=== PATIENT | male | born 1950 | race Caucasian/White ===

== ENCOUNTER 2018-02-24 17:36 | Emergency (ER) | payer OTHER ==
[2018-02-24 18:13] LABS: BASOPHILS # (AUTO) 0.1 10^3/uL (0.0-0.1); BASOPHILS % (AUTO) 0.6 %; EOSINOPHILS # (AUTO) 0.1 10^3/uL (0.0-0.7); EOSINOPHILS % (AUTO) 0.7 %; HGB - HEMOGLOBIN 15.5 g/dL (14.0-18.0); LYMPHOCYTES # (AUTO) 3.7 10^3/uL (1.5-3.5); LYMPHOCYTES % (AUTO) 34.4 %; MEAN CORPUSCULAR HEMOGLOBIN 28.9 pg (27.0-31.0); MEAN PLATELET VOLUME 7.9 fL (7.4-11.4); NEUTROPHILS # (AUTO) 5.9 10^3/uL (1.5-6.6); NEUTROPHILS % (AUTO) 55.3 %; PLT - PLATELET COUNT 183 10^3/uL (130-450); RED BLOOD COUNT 5.37 10^6/uL (4.70-6.10); RED CELL DISTRIBUTION WIDTH 13.5 % (12.0-15.0); WHITE BLOOD COUNT 10.7 x10^3/uL (4.8-10.8)
--- NOTE | 2018-02-24 18:13 | XRAY Report ---
Procedure Date: 02/24/2018 Accession Number: [id number] / [id number] Procedure: XR - Chest 2 View X-Ray CPT Code: 92285 FULL RESULT: EXAM: CHEST RADIOGRAPHY EXAM DATE: 02/24/2018 05:55 PM. CLINICAL HISTORY: Chest pain. COMPARISON: None. TECHNIQUE: 2 views. FINDINGS: Lungs/Pleura: No focal opacities evident. No pleural effusion. No pneumothorax. Normal volumes. Mediastinum: Normal heart size. There is thoracic aortic tortuosity. Other: None. IMPRESSION: No acute intrathoracic plain film abnormality. RADIA
--- NOTE | 2018-02-24 18:21 | ED Physician Documentation ---
PD HPI CHEST PAIN - Stated complaint Stated Complaint: CP - Chief complaint Chief Complaint: Cardiac - History obtained from History obtained from: Patient - History of Present Illness Timing - onset: Yesterday (he says he had onset of chest pain abruptly at rest yesterday morning, which lasted 2-3 hours then decreased but did not go away. Has continued pain into today. Tried to make appt with PMD, but office referred him to the ER. He drove himself here.) Timing - onset during: Rest Timing - duration: Days (about 36 hours of pain, with the initial severe pain lasting the first 2-3 hours) Timing - details: Abrupt onset, Still present Quality: Tightness, Aching, Pain Location: Substernal, Left chest Radiation: Neck Improved by: No: Rest Worsened by: Exertion (walking around). No: Inspiration, Movement, Palpation Associated symptoms: Diaphoresis, Nausea, Feeling faint / dizzy. No: Vomiting, Palpitations, Cough Similar symptoms before: Has not had sx before Recently seen: Not recently seen Review of Systems Ten Systems: 10 systems reviewed and negative Constitutional: denies: Fever, Chills, Myalgias Nose: denies: Rhinorrhea / runny nose Throat: denies: Sore throat Cardiac: reports: Chest pain / pressure. denies: Palpitations, Pedal edema, Calf pain Respiratory: reports: Dyspnea. denies: Cough, Wheezing GI: reports: Nausea. denies: Abdominal Pain, Vomiting, Diarrhea, Bloody / black stool : denies: Dysuria, Frequency Skin: denies: Rash, Lesions Musculoskeletal: denies: Extremity swelling Neurologic: reports: Generalized weakness. denies: Focal weakness, Numbness, Near syncope, Altered mental status, Headache Psychiatric: denies: Anxiety Endocrine: reports: Weight loss (recent due to eating improved diet) Immunocompromised: denies: Immunocompromised PD PAST MEDICAL HISTORY - Past Medical History Cardiovascular: Hypertension Respiratory: None Neuro: TIA Endocrine/Autoimmune: None GI: None - Present Medications Home Medications: Ambulatory Orders Medication Instructions Recorded Confirmed Aspirin 81 mg PO 02/24/18 metFORMIN [Glucophage] 02/24/18 - Allergies Allergies/Adverse Reactions: Allergies Allergy/AdvReac Type Severity Reaction Status Date / Time No Known Drug Allergies Allergy Verified 02/24/18 17:45 - Living Situation Living Situation: reports: Alone Living Arrangement: reports: At home - Social History Does the pt smoke?: No Does the pt drink ETOH?: No Does the pt have substance abuse?: No - Family History Family history: reports: CAD PD ED PE NORMAL - Vitals Vital signs reviewed: Yes - General General: Alert and oriented X 3, No acute distress, Well developed/nourished - HEENT HEENT: Ears normal, Pharynx benign - Neck Neck: Supple, no meningeal sign, No adenopathy, No JVD, No bruit - Cardiac Cardiac: RRR, No murmur - Respiratory Respiratory: Clear bilaterally - Abdomen Abdomen: Normal bowel sounds, Soft, Non tender, Non distended - Male Male : Deferred - Rectal Rectal: Deferred - Back Back: No CVA TTP - Derm Derm: Normal color, Warm and dry, No rash - Extremities Extremities: No deformity, No tenderness to palpate, Normal ROM s pain, No edema , No calf tenderness / cord - Neuro Neuro: Alert and oriented X 3, No motor deficit, Normal speech Eye Opening: Spontaneous Motor: Obeys Commands Verbal: Oriented GCS Score: 15 - Psych Psych: Normal mood, Normal affect Results - Vitals Vitals: Vital Signs - 24 hr 02/24/18 02/24/18 02/24/18 17:40 18:45 19:37 Temperature 37 C 98.5 C H Heart Rate 83 80 63 Respiratory 20 16 19 Rate Blood Pressure 193/112 H 176/105 H 148/96 H O2 Saturation 98 96 95 Oxygen O2 Source Room air - EKG (time done) 17:56 Rate: Rate (enter#) (74) Rhythm: NSR [place]: Normal Intervals: Normal [place] QRS: Normal Ischemia: ST elevation c/w ischemia (V1-4), ST depression (III). No: Hyperacute T waves Compare to prior EKG: Old EKG unavailable - Labs Labs: Laboratory Tests 02/24/18 02/24/18 02/24/18 18:08 18:08 18:08 WBC 10.7 RBC 5.37 Hgb 15.5 Hct 45.6 MCV 85.0 MCH 28.9 MCHC 34.0 RDW 13.5 Plt Count 183 MPV 7.9 Neut # (Auto) 5.9 Lymph # (Auto) 3.7 H Glenn # (Auto) 1.0 Eos # (Auto) 0.1 Baso # (Auto) 0.1 Absolute Nucleated RBC 0.00 Nucleated RBC % 0.0 Sodium 132 L Potassium 3.8 Chloride 98 L Carbon Dioxide 22 Anion Gap 12.0 BUN 14 Creatinine 0.9 Estimated GFR (MDRD) 85 L Glucose 192 H Calcium 9.0 Total Bilirubin 1.1 H AST 71 H ALT 34 Alkaline Phosphatase 71 Troponin I Total Protein 8.0 Albumin 4.7 Globulin 3.3 Albumin/Globulin Ratio 1.4 Lipase 36 - Rads (name of study) chest xray Radiology: Prelim report reviewed (no acute findings. ) PD MEDICAL DECISION MAKING - ED course Complexity details: reviewed results (Patient showing Troponin positive at 6, with ECG changes, so acute GA. ), considered differential (ECG showing ST changes V2-4 and III c/w ischemia but not quite patterned or prominent enough for obvious STEMI. I talked with EDMD at [facility], and had ECG fax to them. Dr. Proctor there says she had Cardiology evaluate the ECG as well and did not feel it met STEMI criteria, but wanted the patient transferred to ER for re- eval to decide on direct to [facility] or not. Meds initiated as acute GA/STEMI), d/w patient, other (Initial EKG was done while the patient was in the waiting room due to busy ER. I reviewed the EKG promptly after it was done. I advised nursing staff the patient should come back immediately. He had EKG changes that were suggestive of acute ischemia though not clearly ST ASA. We initiated cardiac medications after he is description of the history being very consistent with acute GA. Labs had been drawn while he was in the waiting room and soon after he was brought back to room his troponin came back positive at 6. Repeat EKG did not show any significant changes but was still apparent ischemic. The patient's pain was improved with nitroglycerin. Subsequently we were give more nitro. He is given medications appropriate for acute GA which included Plavix heparin metoprolol aspirin and nitroglycerin. EKG was reviewed by [facility] ER attending and by cardiology [facility] consultant. They accepted transfer the patient to there. Patient was advised and updated through the progression of the workup and need for transfer.) - Critical Care Time(min): 35 Time Includes: Direct patient care, Reassess patient, Document care, Medical consult Data interpretation: Labs, CXR Procedures excluded from critical care time: EKG - Sepsis Event Vital Signs: Vital Signs - 24 hr 02/24/18 02/24/18 02/24/18 17:40 18:45 19:37 Temperature 37 C 98.5 C H Heart Rate 83 80 63 Respiratory 20 16 19 Rate Blood Pressure 193/112 H 176/105 H 148/96 H O2 Saturation 98 96 95 Oxygen O2 Source Room air Departure - Departure Disposition: 02 Transfer Acute Care Hosp Clinical Impression: Chest pain Qualifiers: Chest pain type: precordial pain Qualified Code(s): R07.2 - Precordial pain Myocardial infarction Qualifiers: Myocardial infarction type: non-ST elevation myocardial infarction Qualified Code(s): I21.4 - Non-ST elevation (NSTEMI) myocardial infarction Condition: Serious Discharge Date/Time: 02/24/18 19:51
[2018-02-24 18:26] LABS: ALBUMIN 4.7 g/dL (3.2-5.5); ALBUMIN/GLOBULIN RATIO 1.4 (1.0-2.2); BILIRUBIN,TOTAL 1.1 mg/dL (0.2-1.0); CREATININE 0.9 mg/dL (0.6-1.2)
[2018-02-24] MEDS ORDERED: METOPROLOL 5 MG/5 ML VIAL IVP STA (18:42)
[2018-02-24] MEDS ORDERED: CLOPIDOGREL 300 MG TABLET PO STA (18:42)
[2018-02-24] MEDS ORDERED: HEPARIN 25000UNITS/500ML (D5W) 25,000 UNIT/500 ML BAG IV STA (18:42)
[2018-02-24] MEDS ORDERED: ASPIRIN CHEW 81 MG TABLET PO STA (18:42)
[2018-02-24] MEDS ORDERED: NITROGLYCERIN SL 0.4 MG TABLET SL STA (18:42)
[2018-02-24] MEDS ORDERED: HEPARIN 5,000 UNIT/ML VIAL IVP STA (18:42)
[2018-02-24 19:40] VITALS: BP 148/96
== END 2018-02-24 19:51 | disposition short-term general hospital (02) ==
LOC: ED 17:36
DX: R07.2 Precordial pain (principal); I21.4 Non-ST elevation (NSTEMI) myocardial infarction; I10 Essential (primary) hypertension; R94.31 Abnormal electrocardiogram [ECG] [EKG]
CPT/HCPCS: 36415; 71046; 80053; 83690; 84484; 85025; 93005; 96365; 96375; 96376; 99284; 99291; A9270

== ENCOUNTER 2018-02-24 19:53 | Outpatient (CLI) | payer OTHER | END 2018-02-24 19:54 | disposition short-term general hospital (02) | LOC: EMS 19:53 | PROVIDERS: ATTEND Surgery | DX: R07.9 Chest pain, unspecified (principal) | CPT/HCPCS: A0425; A0427 ==